=== PATIENT | male | born 1955 | race Caucasian/White ===

== ENCOUNTER 2020-01-06 12:37 | Emergency (ER) | payer OTHER, MEDICARE ==
[2020-01-06] MEDS ORDERED: HYDROmorphone 1 MG/ML CARPUJECT IM STA (14:02)
[2020-01-06] MEDS ORDERED: DEXAMETHASONE 10 MG/ML VIAL IM STA (14:02)
--- NOTE | 2020-01-06 14:05 | ED Physician Documentation ---
PD HPI BACK PAIN - Stated complaint Stated Complaint: BACK,RT LEG PX - Chief complaint Chief Complaint: Back Pain - History obtained from History obtained from: Patient (65-year-old gentleman with long history of back pain. A couple of years ago he had a spinal fusion at L4 and L5. Had an MRI in September at [facility] showing some neuroforaminal narrowing. He has had increased right buttock and burning leg pain for the last 3 weeks without specific issues. He denies saddle anesthesia, incontinence or fevers. His current pain regimen which is gabapentin 300 mg 3 times a day, oxycodone 5 mg 4 times a day, ibuprofen, muscle relaxer are insufficient.) Review of Systems Constitutional: reports: Reviewed and negative Throat: reports: Reviewed and negative Cardiac: reports: Reviewed and negative PD PAST MEDICAL HISTORY - Past Medical History Past Medical History: Yes Musculoskeletal: Chronic back pain - Present Medications Home Medications: Ambulatory Orders Medication Instructions Recorded Confirmed Gabapentin 300 mg PO TID 01/06/20 01/06/20 Gabapentin 600 mg PO TID #60 tablet 01/06/20 Ibuprofen [Advil] 200 mg PO 01/06/20 Omeprazole 20 mg PO 01/06/20 Simvastatin 10 mg PO DAILY 01/06/20 01/06/20 oxyCODONE [Roxicodone] 1 - 2 tab PO Q4H PRN #20 tablet 01/06/20 oxyCODONE [Roxicodone] 5 mg PO Q4-6H 01/06/20 01/06/20 predniSONE [Deltasone] 20 mg PO [id number] #21 tab 01/06/20 - Allergies Allergies/Adverse Reactions: Allergies Allergy/AdvReac Type Severity Reaction Status Date / Time No Known Drug Allergies Allergy Verified 01/06/20 12:48 - Social History Does the pt smoke?: No Smoking Status: Never smoker PD ED PE NORMAL - Vitals Vital signs reviewed: Yes - General General: Alert and oriented X 3, Other (Winces with motion) - Abdomen Abdomen: Soft, Non tender - Back Back: Other (The patient has equal and normal Achilles and patellar reflexes bilaterally. Normal sensation in all areas of the legs. Patient denies saddle anesthesia. Normal strength in flexion-extension at the ankles, knees, and flexion of the hips.) - Neuro Neuro: Alert and oriented X 3, Normal speech Results - Vitals Vitals: Vital Signs - 24 hr 01/06/20 12:45 Temperature 36.8 C Heart Rate 83 Respiratory 18 Rate Blood Pressure 146/95 H O2 Saturation 96 PD MEDICAL DECISION MAKING - ED course ED course: This patient has seemingly uncomplicated musculoskeletal back pain. The patient has no "red flags." Specifically denies IV drug use, fevers, incontinence, saddle anesthesia. Spinal epidural abscess was considered, given that the patient has no fever, is not diabetic, has no spinal tenderness, does not use IV drugs, and has no bilateral neurologic symptoms, the diagnosis of spinal epidural abscess is considered exceedingly unlikely. The [place] prescription monitoring program was queried with regard to this patient. No concerning findings were found. Departure - Departure Disposition: 01 Home, Self Care Clinical Impression: Sciatica Qualifiers: Laterality: right Qualified Code(s): M54.31 - Sciatica, right side Condition: Good Record reviewed to determine appropriate education?: Yes Instructions: ED Sciatica Prescriptions: Gabapentin 600 mg PO TID #60 tablet oxyCODONE [Roxicodone] 1 - 2 tab PO Q4H PRN #20 tablet PRN Reason: Pain predniSONE [Deltasone] 20 mg PO [id number] #21 tab Comments: You can continue the ibuprofen. I am increasing your gabapentin to 600 mg 3 times a day and some extra oxycodone as well as a steroid taper. Follow-up with your primary care physician and back specialist as soon as possible. Return for new or worsening symptoms. Do not drink or drive while taking narcotic pain medication. Note that many narcotic pain relievers also contain Tylenol/acetaminophen. Please ensure that your total dose of acetaminophen from all sources does not exceed 3 g (3000 mg) per day. You may get constipated while on this medication. Take a stool softener such as Colace twice a day while you are on it. Also add an oizc-cub-spdhiit laxative such as senna or MiraLAX on any day that you do not have a bowel movement. If you received a narcotic pain medication or sedative while in the emergency department, do not drive for the next 24 hours.
[2020-01-06 14:40] VITALS: BP 135/90
== END 2020-01-06 14:45 | disposition home or self-care (01) ==
LOC: ED 12:37
DX: M54.31 Sciatica, right side (principal); Z98.1 Arthrodesis status
CPT/HCPCS: 96372; 96374; 99283; J1170